=== PATIENT | female | born 1970 ===

== ENCOUNTER → 2024-05-20 09:09 | Outpatient (REF) | payer OTHER, SELFPAY | LOC: RAD 09:09 | PROVIDERS: ATTENDING PHYSICIAN Internal Medicine Cardiovascular Disease | DX: R55 Syncope and collapse (principal); R94.31 Abnormal electrocardiogram [ECG] [EKG]; E78.5 Hyperlipidemia, unspecified; I09.9 Rheumatic heart disease, unspecified | CPT/HCPCS: 75574; Q9967 ==